=== PATIENT | female | born 1930 | race Two or more races ===

== ENCOUNTER 2016-04-24 11:19 | Day surgery (SDC) | payer MEDICARE, BC, OTHER ==
[2016-04-18 12:44] VITALS: BMI 28.5
[2016-04-24] MEDS: SODIUM CHLORIDE 0.9% 1,000 ML IV SCH (12:24)
[2016-04-24] MEDS ORDERED: VANCOMYCIN 1,000 MG in SODIUM CHLORIDE 0.9% 250 ML IVPB ONE (13:30)
[2016-04-24] MEDS ORDERED: ceFAZolin 2 GM in SODIUM CHLORIDE 0.9% 100 ML IVPB ONE (13:30)
[2016-04-24] MEDS ORDERED: ceFAZolin 1,000 MG in SODIUM CHLORIDE 0.9% IRRIGATIO 250 ML IRRIGATION ONE (13:30)
[2016-04-24] MEDS ORDERED: fentaNYL (PF) 50 MCG/ML 2 ML AMP ONE (14:24)
[2016-04-24] MEDS ORDERED: PROPOFOL 10 MG/ML 20 ML VIAL IV ONE (14:24)
[2016-04-24] MEDS ORDERED: MIDAZOLAM 2 MG/2 ML VIAL ONE (14:24)
[2016-04-24] MEDS ORDERED: diphenhydrAMINE 50 MG/ML 1 ML VIAL ONE (14:24)
[2016-04-24] MEDS ORDERED: LIDOCAINE 1% INJ 10MG/ML (20 ML MDV) SQ ONE (14:57)
[2016-04-24] MEDS ORDERED: ACETAMINOPHEN TAB 325 MG TAB PO PRN (16:00)
[2016-04-24] MEDS ORDERED: ALBUTEROL NEBULIZED 2.5 MG/3 ML INHALATION PRN (16:01)
--- NOTE | 2016-04-24 17:06 | PCN ---
DATE OF PROCEDURE: Maite Morse is an 86-year-old female who has bradycardia with a dual-chamber ICD which is at [facility]. She was brought in for a generator change; however, after a detailed discussion with her and her daughter, we decided to proceed with a dual-chamber pacemaker implant and not replace it with a dual-chamber ICD. The patient was brought to the EP lab in a fasting state. Written informed consent was obtained prior to the procedure. Intravenous vancomycin was administered prior to the procedure. Intravenous Kefzol was also given. An incision was made directly over the generator and carried down to the level of the generator. The explanted generator was a [employer] [id number], serial #[id number] that was originally implanted in 2007. Partial capsulectomy was performed. The leads were inspected and then connected to the worship leader. The DF pins were capped and sutured to the pectoral muscle. The new generator implanted was a [employer] [id number], serial #[id number]. The chronic RA lead was [employer] model #1888TC, serial #[id number]. The ICD lead was a dual-coil ICD lead, [employer] model #7120, serial #[id number]. The P waves were 0.7 mV, R waves 12 mV, pacing impedance 390 ohms. In the atrium RV pacing impedance 580 ohms, pacing threshold 0.75 v at 0.5 ms for each of the leads. The device was then programmed to DDD mode at 60 beats per minute. The wound was then closed in 3 layers and dressed per protocol. RESULT: Successful dual-chamber ICD generator change capping and securing the DF pins and implantation of dual-chamber pacemaker generator. Patient tolerated the procedure well without any acute complications. PLAN: Intravenous antibiotics for 24 hours.
[2016-04-24] MEDS: ceFAZolin 2 GM in SODIUM CHLORIDE 0.9% 100 ML IVPB SCH (20:24)
[2016-04-24] MEDS: FLUTICASONE 50MCG/SPRAY NASAL 16GM EA NOSTRIL SCH (20:25)
[2016-04-24] MEDS: MONTELUKAST 10 MG TAB PO SCH (20:25)
[2016-04-24] MEDS: BACLOFEN 10 MG TAB PO SCH (20:25)
[2016-04-24] MEDS: GABAPENTIN 300 MG CAP PO SCH (20:25)
[2016-04-25] MEDS: BUDESONIDE 1 MG/2 ML NEBU INHALATION SCH ×3 (00:27→21:49)
[2016-04-25] MEDS: ceFAZolin 2 GM in SODIUM CHLORIDE 0.9% 100 ML IVPB SCH ×3 (03:23→15:12)
[2016-04-25] MEDS: SODIUM CHLORIDE 0.9% 1,000 ML IV SCH (06:36)
[2016-04-25] MEDS: POTASSIUM CHLORIDE ER 10 MEQ TAB.ER.PRT PO SCH (09:20)
[2016-04-25] MEDS: CARVEDILOL 3.125 MG TAB PO SCH (09:20)
[2016-04-25] MEDS: FUROSEMIDE 40 MG TAB PO SCH (09:20)
[2016-04-25] MEDS: predniSONE 20 MG TAB PO SCH (09:20)
[2016-04-25] MEDS: ASPIRIN 81 MG CHEW PO SCH (09:20)
[2016-04-25] MEDS: BACLOFEN 10 MG TAB PO SCH ×3 (09:20→20:21)
[2016-04-25] MEDS: CITALOPRAM HYDROBROMIDE 20 MG TAB PO SCH (09:21)
[2016-04-25] MEDS: FLUTICASONE 50MCG/SPRAY NASAL 16GM EA NOSTRIL SCH ×2 (12:19→20:21)
[2016-04-25 19:58] VITALS: RESP 16
[2016-04-25] MEDS: MONTELUKAST 10 MG TAB PO SCH (20:21)
[2016-04-25] MEDS: GABAPENTIN 300 MG CAP PO SCH (20:21)
[2016-04-25] MEDS ORDERED: MELATONIN 5 MG TABLET PO PRN (20:44)
[2016-04-26] MEDS: BACLOFEN 10 MG TAB PO SCH (08:30)
[2016-04-26] MEDS: CITALOPRAM HYDROBROMIDE 20 MG TAB PO SCH (08:30)
[2016-04-26] MEDS: ASPIRIN 81 MG CHEW PO SCH (08:30)
[2016-04-26] MEDS: predniSONE 20 MG TAB PO SCH (08:30)
[2016-04-26] MEDS: FUROSEMIDE 40 MG TAB PO SCH (08:30)
[2016-04-26] MEDS: POTASSIUM CHLORIDE ER 10 MEQ TAB.ER.PRT PO SCH (08:30)
[2016-04-26] MEDS: CARVEDILOL 3.125 MG TAB PO SCH (08:30)
[2016-04-26] MEDS: SODIUM CHLORIDE 0.9% 1,000 ML IV SCH (08:41)
[2016-04-26] MEDS: FLUTICASONE 50MCG/SPRAY NASAL 16GM EA NOSTRIL SCH (08:42)
--- NOTE | 2016-04-26 10:41 | PN ---
Maite Morse is an 86-year-old female who underwent a pacemaker generator change. She is doing well from a cardiac standpoint. She is lying comfortably in bed and resting, no symptoms. Afebrile, 97.9 degrees Fahrenheit. Pulse rate is in the 60s, blood pressure 169/85 mmHg. Head and neck examination is normal. Heart sounds are normal. Breath sounds are normal. IMPRESSION: Patient is status post pacemaker generator change. Indication was the device was at [facility]. She had a dual-chamber ICD which was explanted and a dual-chamber pacemaker was implanted. PLAN: Discharge to halfway facility in [place] today. Continue current medications and follow up with her primary real estate assessor.
[2016-04-26 11:48] VITALS: BP 104/59; PULSE 76; TEMP 97.6
[2016-04-28] MEDS ORDERED: BUPRENORPHINE TRANSDERM SCH (16:01)
== END 2016-04-26 12:00 ==
LOC: CATHEP 11:19 → 3OBS 15:30 → CATHEP 04-26 12:00 → 3OBS 04-26 12:00
PROVIDERS: ATTEND Internal Medicine Clinical Cardiac Electrophysiology
DX: Z45.02 Encounter for adjustment and management of automatic implantable cardiac defibrillator (principal); I25.5 Ischemic cardiomyopathy; I50.22 Chronic systolic (congestive) heart failure; Z99.3 Dependence on wheelchair; I10 Essential (primary) hypertension; R00.1 Bradycardia, unspecified; I25.10 Atherosclerotic heart disease of native coronary artery without angina pectoris; E11.9 Type 2 diabetes mellitus without complications; K21.9 Gastro-esophageal reflux disease without esophagitis; J44.9 Chronic obstructive pulmonary disease, unspecified; E78.5 Hyperlipidemia, unspecified; I48.91 Unspecified atrial fibrillation; I25.2 Old myocardial infarction; Z79.899 Other long term (current) drug therapy; Z79.51 Long term (current) use of inhaled steroids; Z88.7 Allergy status to serum and vaccine; Z88.8 Allergy status to other drugs, medicaments and biological substances
CPT/HCPCS: 94640; 33213; 33241; C1785; J2250; J3370; J1200; J0690 ×3; J2001; J3010; J2704; J7512 ×2; 33228; 99152; 99153